=== PATIENT | female | born 1965 ===

== ENCOUNTER 2018-02-14 10:31 | Emergency (ER) | payer MEDICAID, OTHER ==
[2018-02-14] MEDS ORDERED: PROPARACAINE/FLUORESCEIN SOD 100 DROP/5 ML BOTTLE OS STA (11:01)
[2018-02-14] MEDS ORDERED: PROPARACAINE/FLUORESCEIN SOD 100 DROP/5 ML BOTTLE ONE (11:05)
--- NOTE | 2018-02-14 11:12 | ED PDOC ---
HPI: Eye Injury/Pain Time Seen by Provider: 02/14/18 10:52 Chief Complaint (Provider): Eye exposure History Per: Patient, Science Faculty Member (Rajendrayce #[id number]) History/Exam Limitations: no limitations Associated Symptoms: Itching. 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 Past Medical History Reviewed: Nursing Documentation, Vital Signs Vital Signs: Last Vital Signs Temp 98.4 F 02/14/18 10:34 Pulse 48 L 02/14/18 10:34 Resp 18 02/14/18 10:34 BP 180/74 H 02/14/18 10:34 Pulse Ox 100 02/14/18 10:34 - Medical History PMH: Diabetes, HTN - Family History Family History: States: Unknown Family Hx - Social History Current smoker - smoking cessation education provided: No Alcohol: None - Immunization History Hx Tetanus Toxoid Vaccination: Yes Hx Influenza Vaccination: Yes Hx Pneumococcal Vaccination: Yes - Home Medications Home Medications: Ambulatory Orders Medication Instructions Recorded Metformin 11/06/13 Novolog 11/06/13 oxyCODONE/Acetaminophen [Percocet 1 tab PO QID PRN #15 tab 11/06/13 5/325 mg Tab] - Allergies Allergies/Adverse Reactions: Allergies Allergy/AdvReac Type Severity Reaction Status Date / Time No Known Allergies Allergy Unverified 11/06/13 21:34 Review of Systems Constitutional: Negative for: Fever Eyes: Negative for: Pain, Vision Change, Conjunctivae Inflammation, Eyelid Inflammation, Redness Skin: Negative for: Rash, Lesions Neurological: Negative for: Headache, Dizziness Physical Exam - Reviewed Nursing Documentation Reviewed: Yes Vital Signs Reviewed: Yes - Physical Exam Appears: Positive for: Well, No Acute Distress Head Exam: Positive for: ATRAUMATIC, NORMAL INSPECTION Skin: Positive for: Normal Color, Warm, Dry Eye Exam: Positive for: Normal appearance, EOMI, PERRL, Other (No abnormal fluoroscein uptake). Negative for: Nystagmus, Periorbital swelling, Periorbital tenderness, Conjunctival injection, Scleral icterus Neurologic/Psych: Positive for: Alert, Oriented - ECG O2 Sat by Pulse Oximetry: 100 Medical Decision Making Medical Decision Makin yo female with chemical eye exposure. - fluoroscein test - Venkatesh lens eye irrigation 16:10 OS irrigated with 500 cc NS, feels better, no visual changes. States she went to eye doctor 2 weeks ago and was told she needs glasses. Disposition - Clinical Impression Clinical Impression: Chemical exposure of eye - Disposition Referrals: Jean-Paul Morris MD [Staff Provider] - Disposition: Routine/Home Disposition Time: 16:28 Condition: IMPROVED Instructions: Chemical Eye Injury Forms: [facility] (Lux[place]ish) Print Language: CZECH
[2018-02-14 11:36] VITALS: RESP 18; TEMP 98.4; O2SAT 100
[2018-02-14 17:07] VITALS: BP 135/65; PULSE 52
== END 2018-02-14 16:55 | disposition home or self-care (01) ==
LOC: H.ER 10:31
DX: Z77.098 Contact with and (suspected) exposure to other hazardous, chiefly nonmedicinal, chemicals (principal); Y99.0 Civilian activity done for income or pay; E11.9 Type 2 diabetes mellitus without complications; Z79.84 Long term (current) use of oral hypoglycemic drugs; I10 Essential (primary) hypertension